=== PATIENT | female | born 1975 | race Two or more races ===

== ENCOUNTER 2020-03-21 12:03 | Emergency (ER) | payer SELFPAY ==
--- NOTE | 2020-03-21 12:31 | EDM.PDOC ---
ED HPI GENERAL MEDICAL PROBLEM - General Stated Complaint: SHORTNESS OF BREATH/POSSIBLE BLOOD CLOT Time Seen by Provider: 03/21/20 12:20 Source of Information: Reports: Patient History Limitations: Reports: No Limitations - History of Present Illness INITIAL COMMENTS - FREE TEXT/NARRATIVE: This 44 yo female patient reports to the ED with increased shortness of breath for the past 5 days. The patient also reports she has left, proximal medial calf pain and swelling that started today. The patient reports she has a history of blood clots in her legs and previous PE's. The patient reports she has not been taking any of her medications in the past 2 months due to not being able to afford her medications. The patient reports she is supposed to be on Xarelto for her blood clots. The patient reports she has not seen her PCP since December. The patient reports she has not taken her anxiety medications yet today. The patient reports she has had increased difficulties due to the COVID Pandemic. The chani ent reports her lost his job due to COVID related closings and slow downs. Duration: Day(s): (5 days for her increased shortness of breath, 1 day for her left calf pain) Location: Reports: Chest, Lower Extremity, Left Quality: Reports: Pressure Severity: Moderate Improves with: Reports: None Worsens with: Reports: None Context: Reports: Other Associated Symptoms: Reports: Shortness of Breath Generalized Pain Score (Numeric/FACES): 5 - Related Data Allergies Allergy/AdvReac Type Severity Reaction Status Date / Time seafood Allergy Anaphylactic Uncoded 03/21/20 12:18 Shock Home Meds: Home Meds ARIPiprazole [Abilify] 30 mg PO DAILY 03/21/20 [History] ClonazePAM [KlonoPIN] 0.5 mg PO BID 03/21/20 [History] DULoxetine [Cymbalta] 30 mg PO DAILY 03/21/20 [History] DULoxetine [Cymbalta] 60 mg PO BEDTIME 03/21/20 [History] Furosemide [Lasix] 20 mg PO DAILY 03/21/20 [History] Gabapentin [Neurontin] 600 mg PO BID 03/21/20 [History] Omeprazole 20 mg PO DAILY 03/21/20 [History] Potassium Chloride 20 meq PO DAILY 03/21/20 [History] Rivaroxaban [Xarelto] 20 mg PO DAILY 03/21/20 [History] Topiramate [Topiramate ER] 50 mg PO BID 03/21/20 [History] Past Medical History Psychiatric History: Reports: Anxiety, Depression Hematologic History: Reports: Anticoagulation Therapy (Noncompliant) ED ROS GENERAL - Review of Systems Review Of Systems: Comprehensive ROS is negative, except as noted in HPI. ED EXAM, GENERAL - Physical Exam Exam: See Below Exam Limited By: No Limitations General Appearance: Alert, WD/WN, Anxious, Moderate Distress, Obese Eye Exam: Bilateral Eye: EOMI, Normal Inspection, PERRL Ears: Normal External Exam, Normal Canal, Hearing Grossly Normal, Normal TMs Nose: Normal Inspection, Normal Mucosa, No Blood Throat/Mouth: Normal Lips, Normal Teeth, Normal Voice, No Airway Compromise, Inflammation (Posterior pharynx) Head: Atraumatic, Normocephalic Neck: Normal Inspection, Supple, Non-Tender, Full Range of Motion Respiratory/Chest: No Accessory Muscle Use, Chest Non-Tender, Decreased Breath Sounds (Throughout) Cardiovascular: Normal Peripheral Pulses, Regular Rate, Rhythm, No Edema, No Gallop, No JVD, No Murmur, No Rub GI/Abdominal: Normal Bowel Sounds, Soft, Non-Tender, No Organomegaly, No Distention, No Abnormal Bruit, No Mass, Other (obese) (Female) Exam: Deferred Rectal (Female) Exam: Deferred Extremities: Leg Pain (left proximal medial calf tenderness and swelling) Neurological: Alert, Oriented, CN II-XII Intact, Normal Cognition, Confused Psychiatric: Anxious Skin Exam: Warm, Dry, Intact, Normal Color, No Rash Lymphatic: No Adenopathy Course - Vital Signs Last Recorded V/S: Last Vital Signs Temp 36.6 C 03/21/20 12:18 Pulse 90 03/21/20 12:18 Resp 18 03/21/20 12:18 BP 132/94 H 03/21/20 12:18 Pulse Ox 100 03/21/20 12:18 - Orders/Labs/Meds Orders: Active Orders 24 hr Category Date Time Status CULTURE BLOOD [BC] Stat Lab 03/21/20 12:08 Ordered Labs: Laboratory Tests 03/21/20 03/21/20 03/21/20 Range/Units 12:19 12:19 12:19 WBC 11.6 H (5.0-10.0) 10^3/uL RBC 4.59 (4.2-5.4) 10^6/uL Hgb 14.5 (12.0-16.0) g/dL Hct 42.1 (37.0-47.0) % MCV 91.7 (80-100) fL MCH 31.6 (27.0-34.0) pg MCHC 34.4 (33.0-35.0) g/dL Plt Count 234 (150-450) 10^3/uL Neut % (Auto) 58.3 (42.2-75.2) % Lymph % (Auto) 30.1 (20.5-50.1) % Pierce % (Auto) 9.6 H (2-8) % Eos % (Auto) 1.7 (1.0-3.0) % Baso % (Auto) 0.3 (0.0-1.0) % D-Dimer, Quantitative 351 (0-400) ng/mL Sodium 139 (136-145) mmol/L Potassium 3.5 (3.5-5.1) mmol/L Chloride 103 (98-107) mmol/L Carbon Dioxide 26 (21-32) mmol/L Anion Gap 13.5 H (7-13) mEq/L BUN 8 (7-18) mg/dL Creatinine 1.05 H (0.55-1.02) mg/dL Est Cr Clr Drug Dosing 67.18 mL/min Estimated GFR (MDRD) 57 BUN/Creatinine Ratio 7.6 (No establ ref range) Glucose 134 H (74-99) mg/dL Lactic Acid (0.4-2.0) mmol/L Calcium 8.7 (8.5-10.1) mg/dL Total Bilirubin 0.3 (0.2-1.0) mg/dL AST 15 (15-37) U/L ALT 27 (14-59) U/L Alkaline Phosphatase 65 (46-116) U/L B-Natriuretic Peptide (0-100) pg/ml Total Protein 7.0 (6.4-8.2) g/dL Albumin 3.3 L (3.4-5.0) g/dL Globulin 3.7 Albumin/Globulin Ratio 0.89 SARS-CoV-2 RNA (RT-PCR) (NEGATIVE) 06/18/20 06/18/20 06/18/20 Range/Units 12:19 12:19 12:29 WBC (5.0-10.0) 10^3/uL RBC (4.2-5.4) 10^6/uL Hgb (12.0-16.0) g/dL Hct (37.0-47.0) % MCV (80-100) fL MCH (27.0-34.0) pg MCHC (33.0-35.0) g/dL Plt Count (150-450) 10^3/uL Neut % (Auto) (42.2-75.2) % Lymph % (Auto) (20.5-50.1) % Pierce % (Auto) (2-8) % Eos % (Auto) (1.0-3.0) % Baso % (Auto) (0.0-1.0) % D-Dimer, Quantitative (0-400) ng/mL Sodium (136-145) mmol/L Potassium (3.5-5.1) mmol/L Chloride (98-107) mmol/L Carbon Dioxide (21-32) mmol/L Anion Gap (7-13) mEq/L BUN (7-18) mg/dL Creatinine (0.55-1.02) mg/dL Est Cr Clr Drug Dosing mL/min Estimated GFR (MDRD) BUN/Creatinine Ratio (No establ ref range) Glucose (74-99) mg/dL Lactic Acid 1.9 (0.4-2.0) mmol/L Calcium (8.5-10.1) mg/dL Total Bilirubin (0.2-1.0) mg/dL AST (15-37) U/L ALT (14-59) U/L Alkaline Phosphatase (46-116) U/L B-Natriuretic Peptide < 5 (0-100) pg/ml Total Protein (6.4-8.2) g/dL Albumin (3.4-5.0) g/dL Globulin Albumin/Globulin Ratio SARS-CoV-2 RNA (RT-PCR) Negative (NEGATIVE) Departure - Departure Time of Disposition: 15:34 Disposition: Home, Self-Care 01 Condition: Fair Clinical Impression: Bronchitis, Thrombophlebitis - Discharge Information *PRESCRIPTION DRUG MONITORING PROGRAM REVIEWED*: Not Applicable *COPY OF PRESCRIPTION DRUG MONITORING REPORT IN PATIENT CHRISTIN: Not Applicable Instructions: Phlebitis, [id number], Acute Bronchitis, Adult, [id number] Forms: ED Department Discharge Care Plan Goals: The patient was advised of the examination, lab, x-ray and ultrasound results during the visit. The patient was discharged with a script for Augmentin (500/125) to take 1 by mouth 2 times per day for 10 days and Diflucan (150 mg) #1 to take for vaginal symptoms. The patient was also encouraged to rest, apply heat therapy and take Ibuprofen as directed for her left lower extremity. The patient was encouraged to follow-up with her primary care facility for continued evaluation and further management. If the patient has any additional symptoms or concerns, the patient should either return to the emergency department or visit her primary care facility. Sepsis Event Note (ED) - Evaluation Sepsis Screening Result: No Definite Risk - Focused Exam Vital Signs: Vital Signs Temp Pulse Resp BP Pulse Ox 03/21/20 12:18 36.6 C 90 18 132/94 H 100 - My Orders Last 24 Hours: My Active Orders 03/21/20 12:08 CULTURE BLOOD [BC] Stat - Assessment/Plan Last 24 Hours: My Active Orders 03/21/20 12:08 CULTURE BLOOD [BC] Stat
[2020-03-21 13:06] LABS: ANION GAP 13.5 mEq/L (7-13)
--- NOTE | 2020-03-21 13:51 | CR ---
EXAMINATION: Chest 2V SEX: Female AGE: 44 years CLINICAL HISTORY: 44-year-old morbidly obese female complaining of shortness of breath (SOB) and left calf pain. Significant past medical history treatment for superficial venous thrombosis (Patient stopped PRN). Currently "normal" serum d-dimer. No comparison studies immediately available at this institution. Interpretation: Reasonable inspiratory effort. Generalized shaggy accentuation of interstitial markings and mild peribronchial "cuffing". Smoker? No cystic or bullous emphysematous changes. No air trapping. Normal cardiac silhouette and bony thorax. No pulmonary vascular congestion, cephalization of flow, alveolar edema or dependent pleural effusion. No lung mass or hilar lymphadenopathy. No focal lobar pneumonia. Patchy atelectasis right lung base. No pneumothorax or pneumomediastinum. Midline tracheal bronchial airway unremarkable. CONCLUSION: No signs of heart failure, lung mass or lobar pneumonia.
--- NOTE | 2020-03-21 15:24 | US ---
EXAMINATION: Venous Doppler Lwr Ext Lt SEX: Female AGE: 44 years CLINICAL HISTORY: 44-year-old female with shortness of breath and LEFT CALF PAIN who has a history of "venous thrombosis with PE" 2013 and 2017 but stopped taking anticoagulant medication. Serum D dimer now [address] PE study of the chest earlier today "negative". Rule out DVT. Interpretation: 1. No sign of intraluminal echogenic thrombus and normal compressibility deep veins of the left groin, thigh, knee and calf. Satisfactory augmentation and venous waveforms demonstrated respectively in the peroneal/posterior tibial veins of the left calf, popliteal vein left knee, and proximally in the femoral veins, left lower extremity. 2. Evidence suggesting superficial venous thrombophlebitis greater saphenous vein (GSV) left lower extremity, involving distal thigh to below the knee (intraluminal thrombus and extremely "slow-moving" blood). 3. No sign of popliteal (Wood's) cyst behind the left knee. CONCLUSION: Superficial thrombophlebitis (GSV). No current evidence DVT left lower extremity.
== END 2020-03-21 15:43 | disposition home or self-care (01) ==
LOC: DL.ED 12:03
DX: I80.02 Phlebitis and thrombophlebitis of superficial vessels of left lower extremity (principal); J40 Bronchitis, not specified as acute or chronic; F41.9 Anxiety disorder, unspecified; F32.9 Major depressive disorder, single episode, unspecified; Z79.899 Other long term (current) drug therapy; Z79.01 Long term (current) use of anticoagulants; Z91.013 Allergy to seafood
CPT/HCPCS: 36415; 71046; 80053; 83605; 83880; 85025; 85379; 87040; 93971; 99285-25; U0002

== ENCOUNTER 2020-08-19 17:48 | Emergency (ER) | payer MEDICAID ==
--- NOTE | 2020-08-19 19:52 | CR ---
PROCEDURE INFORMATION: Exam: XR Abdomen, 1 View Exam date and time: 08/19/2020 7:25 PM Age: 44 years old Clinical indication: Abdominal pain; Generalized TECHNIQUE: Imaging protocol: XR of the abdomen. Views: Frontal supine view of the abdomen. 1 View. COMPARISON: No relevant prior studies available. FINDINGS: Gastrointestinal tract: Non-specific bowel gas pattern with moderate amount of stool within the colon. Bones/joints: Unremarkable. IMPRESSION: Nonspecific bowel gas pattern with moderate amount of stool.
[2020-08-19 20:15] LABS: ANION GAP 14.8 mEq/L (7-13)
--- NOTE | 2020-08-19 21:36 | EDM.PDOC ---
ED HPI GENERAL MEDICAL PROBLEM - General Chief Complaint: Abdominal Pain Stated Complaint: PAIN ON LEFT SIDE FOR A MONTH Time Seen by Provider: 08/19/20 19:10 Source of Information: Reports: Patient History Limitations: Reports: No Limitations - History of Present Illness INITIAL COMMENTS - FREE TEXT/NARRATIVE: ED with c/o LUQ pain for one month. Has been seen in clinic, CT done last week. Contacted clinic today and was told to go to ED and would need COVID test. Unaware CT impression included constipation. EGD scheduled next week. No vomiting. Pain colicky, worse after eating. No diarrhea, No vomiting. No fever. Has had chills today. Tolerating soids and liquids but decreased from norm. Left Upper Abdomen Pain Score (Numeric/FACES): 4 - Related Data Allergies Allergy/AdvReac Type Severity Reaction Status Date / Time seafood Allergy Anaphylactic Uncoded 03/21/20 12:18 Shock Home Meds: Home Meds ARIPiprazole [Abilify] 30 mg PO DAILY 03/21/20 [History] ClonazePAM [KlonoPIN] 0.5 mg PO BID 03/21/20 [History] DULoxetine [Cymbalta] 30 mg PO DAILY 03/21/20 [History] DULoxetine [Cymbalta] 60 mg PO BEDTIME 03/21/20 [History] Furosemide [Lasix] 20 mg PO DAILY 03/21/20 [History] Gabapentin [Neurontin] 600 mg PO BID 03/21/20 [History] Omeprazole 20 mg PO DAILY 03/21/20 [History] Potassium Chloride 20 meq PO DAILY 03/21/20 [History] Rivaroxaban [Xarelto] 20 mg PO DAILY 03/21/20 [History] Topiramate [Topiramate ER] 50 mg PO BID 03/21/20 [History] Past Medical History Cardiovascular History: Reports: None Respiratory History: Reports: PE Gastrointestinal History: Reports: None [employer] INSULATION History: Reports: None Musculoskeletal History: Reports: Fibromyalgia Neurological History: Reports: Migraines Psychiatric History: Reports: Anxiety, Depression Endocrine/Metabolic History: Reports: Obesity/BMI 30+ Hematologic History: Reports: Anticoagulation Therapy Immunologic History: Reports: None Oncologic (Cancer) History: Reports: None Dermatologic History: Reports: None - Infectious Disease History Infectious Disease History: Reports: None - Past Surgical History Head Surgeries/Procedures: Reports: None HEENT Surgical History: Reports: Adenoidectomy, Tonsillectomy Female Surgical History: Reports: Tubal Ligation Musculoskeletal Surgical History: Reports: Other (See Below) Other Musculoskeletal Surgeries/Procedures:: TIB/FIB fx with plates and pins Social & Family History - Family History Family Medical History: No Pertinent Family History - Tobacco Use Tobacco Use Status *Q: Never Tobacco User - Caffeine Use Caffeine Use: Reports: None - Recreational Drug Use Recreational Drug Use: No ED ROS GENERAL - Review of Systems Review Of Systems: Comprehensive ROS is negative, except as noted in HPI. ED EXAM, GI/ABD - Physical Exam Exam: See Below Exam Limited By: No Limitations General Appearance: Alert, Anxious, Mild Distress Eyes: Bilateral: EOMI Ears: Normal External Exam, Normal TMs Nose: Normal Inspection Throat/Mouth: Normal Inspection Head: Atraumatic, Normocephalic Respiratory/Chest: No Respiratory Distress, Lungs Clear, Normal Breath Sounds Cardiovascular: Normal Peripheral Pulses, Regular Rate, Rhythm GI/Abdominal Exam: Normal Bowel Sounds, Soft, Tender (LUQ epigastric). No: Distended, Guarding, Rigid, Rebound, Abnormal Bowel Sounds Back Exam: Full Range of Motion Extremities: Normal Inspection, Normal Range of Motion Neurological: Alert, Oriented, Normal Cognition Psychiatric: Anxious Skin Exam: Warm, Dry, Intact, Normal Color Course - Vital Signs Last Recorded V/S: Last Vital Signs Temp 98.1 F 08/19/20 18:56 Pulse 74 08/19/20 18:56 Resp 18 08/19/20 18:56 BP 142/63 H 08/19/20 18:56 Pulse Ox 99 08/19/20 18:56 - Orders/Labs/Meds Orders: Active Orders 24 hr Category Date Time Status CORONAVIRUS COVID-19 PCR [facility] Urgent Lab 08/19/20 21:20 Received Labs: Laboratory Tests 08/19/20 08/19/20 08/19/20 Range/Units 19:51 19:51 20:44 WBC 11.0 H (5.0-10.0) 10^3/uL RBC 4.74 (4.2-5.4) 10^6/uL Hgb 15.2 (12.0-16.0) g/dL Hct 43.9 (37.0-47.0) % MCV 92.6 (80-100) fL MCH 32.1 (27.0-34.0) pg MCHC 34.6 (33.0-35.0) g/dL Plt Count 273 (150-450) 10^3/uL Neut % (Auto) 57.3 (42.2-75.2) % Lymph % (Auto) 33.5 (20.5-50.1) % Parmer % (Auto) 7.0 (2-8) % Eos % (Auto) 1.7 (1.0-3.0) % Baso % (Auto) 0.5 (0.0-1.0) % Sodium 139 (136-145) mmol/L Potassium 3.8 (3.5-5.1) mmol/L Chloride 103 (98-107) mmol/L Carbon Dioxide 25 (21-32) mmol/L Anion Gap 14.8 H (7-13) mEq/L BUN 11 (7-18) mg/dL Creatinine 1.18 H (0.55-1.02) mg/dL Est Cr Clr Drug Dosing 57.55 mL/min Estimated GFR (MDRD) 50 BUN/Creatinine Ratio 9.3 (No establ ref range) Glucose 102 H (74-99) mg/dL Calcium 9.1 (8.5-10.1) mg/dL Total Bilirubin 0.4 (0.2-1.0) mg/dL AST 11 L (15-37) U/L ALT 24 (14-59) U/L Alkaline Phosphatase 78 (46-116) U/L Total Protein 7.5 (6.4-8.2) g/dL Albumin 3.5 (3.4-5.0) g/dL Globulin 4.0 Albumin/Globulin Ratio 0.9 Amylase 58 (25-115) U/L Lipase 96 (73-393) U/L Urine Color Yellow (YELLOW) Urine Appearance Cloudy (CLEAR) Urine pH 5.5 (5.0-9.0) Ur Specific Dysart >= 1.030 (1.005-1.030) Urine Protein Negative (NEGATIVE) Urine Glucose (UA) Negative (NEGATIVE) Urine Ketones Negative (NEGATIVE) Urine Occult Blood Negative (NEGATIVE) Urine Nitrite Negative (NEGATIVE) Urine Bilirubin Negative (NEGATIVE) Urine Urobilinogen 1.0 (0.2-1.0) mg/dL Ur Leukocyte Esterase Negative (NEGATIVE) Departure - Departure Time of Disposition: 21:34 Disposition: Home, Self-Care 01 Condition: Good Clinical Impression: Constipation by delayed colonic transit Abdominal pain Qualifiers: Abdominal location: left upper quadrant Qualified Code(s): R10.12 - Left upper quadrant pain - Discharge Information *PRESCRIPTION DRUG MONITORING PROGRAM REVIEWED*: No *COPY OF PRESCRIPTION DRUG MONITORING REPORT IN PATIENT CHRISTIN: No Instructions: Abdominal Pain, Adult, [id number] Forms: ED Department Discharge Additional Instructions: light diet, bland diet increase fruit fiber in diet miralax one capful daily in 8 ounces liquid Sepsis Event Note (ED) - Evaluation Sepsis Screening Result: No Definite Risk - Focused Exam Vital Signs: Vital Signs Temp Pulse Resp BP Pulse Ox 08/19/20 18:56 98.1 F 74 18 142/63 H 99 - My Orders Last 24 Hours: My Active Orders 08/19/20 21:20 CORONAVIRUS COVID-19 PCR PHL Urgent - Assessment/Plan Last 24 Hours: My Active Orders 08/19/20 21:20 CORONAVIRUS COVID-19 PCR PHL Urgent
== END 2020-08-19 21:44 | disposition home or self-care (01) ==
LOC: DL.ED 17:48
DX: K59.01 Slow transit constipation (principal); F41.9 Anxiety disorder, unspecified; F32.9 Major depressive disorder, single episode, unspecified; E66.9 Obesity, unspecified; Z68.44 Body mass index [BMI] 60.0-69.9, adult; Z91.013 Allergy to seafood; Z79.899 Other long term (current) drug therapy; Z86.718 Personal history of other venous thrombosis and embolism; Z86.711 Personal history of pulmonary embolism; Z79.01 Long term (current) use of anticoagulants; Z20.828 Contact with and (suspected) exposure to other viral communicable diseases
CPT/HCPCS: 36415; 74018; 80053; 81003; 82150; 83690; 85025; 99283; 99284-25; U0002

== ENCOUNTER 2020-08-26 05:32 | Day surgery (SDC) | payer MEDICAID ==
[2020-08-26] MEDS ORDERED: fentaNYL 100 MCG/2 ML SDV IV ONE ×3 (05:33→06:29)
[2020-08-26] MEDS ORDERED: Midazolam 1 MG/ML 2 ML SDV IV ONE ×3 (05:33→06:30)
[2020-08-26] MEDS ORDERED: Sodium Chloride 0.9% 10 ML Syringe FLUSH PRN (06:00)
[2020-08-26] MEDS ORDERED: Dextrose 5%-0.45% NaCl 1,000 ML IV SCH (06:00)
[2020-08-26] MEDS ORDERED: fentaNYL 100 MCG/2 ML SDV ONE (06:15)
[2020-08-26] MEDS ORDERED: Midazolam 1 MG/ML 2 ML SDV ONE (06:15)
--- NOTE | 2020-08-26 07:20 | OR ---
DATE: 08/26/2020 PROCEDURES: 1. Esophagogastroduodenoscopy. 2. Multiple pinch biopsies. INSTRUMENT USED: [id number] Olympus video panendoscope. PREMEDICATIONS: No oral or topical anesthesia was used. Fentanyl 100 mcg intravenous, Versed 2 mg intravenous, and nasal O2 cannula. The procedure was done under pulse oximetry, BP recording, and director of cardiac cath lab. INDICATION: The patient with persistent abdominal pain, unexplained, not responsive to medical measures, on high-dose PPI. Esophagogastroduodenoscopy is performed for detection of any active erosive lesions. Villarreal esophagus and/or malignancy are also under consideration. H pylori status is to be determined. Endoscopic hemostasis therapy if needed. DESCRIPTION OF PROCEDURE: The scope was passed with ease. Adequate visualization of the esophagus was made from proximal to distal areas. No upper esophageal lesions were identified. No distal esophageal stricture. No uphill or downhill esophageal varices. No Opal-Myrick tear. No evidence of erosive esophagitis by Rowan criteria. No esophageal polyp or tumor mass was identified. The Z-line was seen at around 40 cm distal to the oral verge. No proximal gastric varices were noted. Gastric fundus examination by retroflexion showed no polypoid lesions. No gastric ulcer, malignant mass, or vascular ectasia was identified. Scattered gastric antral erosions were noted without bleeding from them. Multiple pinch biopsies were taken from the gastric antrum and proximal body and sent for PyloriTek test for H pylori, and if negative in an hour, the tissue is to be sent for histopathology. Duodenal bulb showed patchy erythema. The visualized second part of the duodenum was unremarkable. No bleeding was noted from any of the visualized areas at the completion of the examination. Photographs were taken of the duodenal bulb, gastric antrum, fundus, and distal esophagus. IMPRESSION: Gastric antral erosions. The patient tolerated the procedure well. [facility] /[id number]
== END 2020-08-26 08:42 | disposition home or self-care (01) ==
LOC: DL.ENDO 05:32
PROVIDERS: ATTEND Internal Medicine Gastroenterology
DX: K25.9 Gastric ulcer, unspecified as acute or chronic, without hemorrhage or perforation (principal); K29.50 Unspecified chronic gastritis without bleeding; E66.01 Morbid (severe) obesity due to excess calories; F32.9 Major depressive disorder, single episode, unspecified; F41.9 Anxiety disorder, unspecified; Z86.711 Personal history of pulmonary embolism; Z86.718 Personal history of other venous thrombosis and embolism; G89.4 Chronic pain syndrome; Z87.81 Personal history of (healed) traumatic fracture; Z98.890 Other specified postprocedural states; Z91.013 Allergy to seafood; Z98.51 Tubal ligation status; N18.9 Chronic kidney disease, unspecified; F17.210 Nicotine dependence, cigarettes, uncomplicated; Z80.0 Family history of malignant neoplasm of digestive organs; Z68.43 Body mass index [BMI] 50.0-59.9, adult
CPT/HCPCS: 43239; 87077; J2250; J3010; J7042